=== PATIENT | male | born 1945 | race Caucasian/White ===

== ENCOUNTER 2022-09-30 11:15 | Observation (INO) ==
[~2022-09-30 11:15] MED LIST: Buffered Lidocaine 1% SYRIN 1 ml INTRADERM ONE; Lactated Ringers 1000 ml BAG 1,000 ML IV SCH; Naloxone 0.4 mg VIAL 0.4 mg/ml 1 ml VIAL IV PRN; Prochlorperazine 5 mg/ml 2 ml VIAL (10 mg) IV PRN; fentaNYL 100 mcg/2 ml 50 MCG/ML VIAL IV PRN
[2022-09-30] MEDS ORDERED: ceFAZolin 2 GM in NS PREMIX 2 GM/100 ML BAG IVPB ONE (12:05)
[2022-09-30] MEDS ORDERED: Bupivacaine 0.5% 50 ML MDV VIAL ONE (12:22)
[2022-09-30] MEDS ORDERED: fentaNYL 100 mcg/2 ml 50 MCG/ML VIAL ONE (12:25)
[2022-09-30] MEDS ORDERED: Midazolam 2 mg/2 ml VIAL 1 mg/ml 2 ml VIAL (2 mg) ONE (12:25)
[2022-09-30] MEDS ORDERED: Lidocaine 2% PF 5 ML VIAL ONE (13:15)
[2022-09-30] MEDS ORDERED: Phenylephrine IV 10 MG/ML 1 ml VIAL ONE (13:15)
[2022-09-30 13:17] LABS: Rapid COVID-19 Molecular Undetected (Undetected)
[2022-09-30] MEDS ORDERED: Morphine 2 MG/ML SYRINGE IV PRN (14:50)
[2022-09-30] MEDS ORDERED: Magnesium Hydroxide LIQ 30 ML UDC PO PRN (14:50)
[2022-09-30] MEDS ORDERED: Ondansetron 4 mg VIAL 2 MG/ML 2 ml VIAL IV PRN (14:50)
[2022-09-30] MEDS ORDERED: Lactulose 30 ml UDC PO PRN (14:50)
[2022-09-30] MEDS ORDERED: Lactated Ringers 1000 ml BAG 1,000 ML IV SCH (15:00)
[2022-09-30] MEDS ORDERED: Dexamethasone IV 4 MG/ML VIAL 1 ml VIAL ONE (15:42)
[2022-09-30] MEDS ORDERED: Ondansetron 4 mg VIAL 2 MG/ML 2 ml VIAL ONE (15:42)
[2022-09-30] MEDS ORDERED: Propofol 10 MG/ML 20 ML BTL ONE (16:48)
[2022-09-30] MEDS ORDERED: Acetaminophen IV 1 GM/100ML 1,000 MG/100 ML BAG IV ONE (17:00)
[2022-09-30] MEDS: Ondansetron ODT 4 mg TAB 4 MG TAB PO PRN (21:44)
[2022-09-30] MEDS: Magnesium Hydroxide LIQ 30 ML UDC PO SCH (21:48)
[2022-09-30] MEDS ORDERED: Prochlorperazine 5 mg/ml 2 ml VIAL (10 mg) IV PRN (23:10)
[2022-10-01] MEDS: ceFAZolin 1 GM ADVAN 1 GM in NS 0.9% 50 ML 50 ML IVPB SCH ×3 (00:31→14:24)
[2022-10-01 06:56] LABS: Calcium 8.6 mg/dL (8.6-10.3); Creatinine, Serum 0.85 mg/dL (0.67-1.17); Potassium 4.4 mmol/L (3.5-5.0); eGFR CKD-EPI 88.4 (>60)
[2022-10-01] MEDS: Magnesium Hydroxide LIQ 30 ML UDC PO SCH (07:34)
[2022-10-01 07:54] LABS: Hematocrit 36.8 % (38-53); Hemoglobin 13.1 g/dL (13.2-16.3); Platelet Count 226 10^3/uL (150-450)
[2022-10-01] MEDS ORDERED: Cholecalciferol (VIT D3) 1,000 unit TAB PO SCH (09:00)
[2022-10-01] MEDS ORDERED: MULTIVIT MIN FA LYCOPEN LUTEIN PO SCH (09:00)
[2022-10-01] MEDS ORDERED: Vitamin THERAPEUTIC TAB PO SCH (09:00)
[2022-10-01 14:16] VITALS: BP 148/67
[2022-10-01] MEDS: Ondansetron ODT 4 mg TAB 4 MG TAB PO PRN (15:21)
== END 2022-10-01 15:48 | disposition home or self-care (01) ==
LOC: INTOOBSV 11:41 → AA 11:41 → SSU 19:53
PROVIDERS: ADMIT Orthopaedic Surgery Adult Reconstructive Orthopaedic Surgery; ATTEND Orthopaedic Surgery Adult Reconstructive Orthopaedic Surgery